=== PATIENT | male | born 1960 | race Caucasian/White ===

== ENCOUNTER → 2019-04-28 | Day surgery (SDC) | payer MEDICARE, OTHER ==
[~2019-04-28] MED LIST: ALLO300T PO; AMLO10TA8 PO; GLIP10TA13 PO; IV RINGERS,LACTATED 1000ML 1,000 ML IV SCH; LIDOCAINE 2% PF 5 ML VIAL. ONE; LISI10TA2 PO; METF500T16 PO; PROPOFOL 40 ML IV ONE; SODIUM PHOSPHATES 19/7GM 133 ML ENEMA. ONE
--- NOTE | 2019-04-28 08:28 | NUR ---
PT HERE IN [facility] FOR COLONOSCOPY. STATED HE ATE SOLID FOODS 04/27/2019 AND DRANK 2 CUPS OF COFFEE WITH SUGAR AM OF PROCEDURE. DR REZA AND ANESTHESIA NOTIFIED. ORDERS FOR ENEMAS X2 AND TO PLACE PATIENT AT END OF THE SCHEDULE DUE TO COFFEE. ENEMAS COMPLETED AND PT NOTED TO BE CLEAR WITH NO SOLIDS IN STOOL. WILL RESUME WITH PROCEDURE BUT POSTPONING TO THE END OF SCHEDULE DUE TO COFFEE
[2019-04-28 10:12] VITALS: BP 119/77
--- NOTE | 2019-04-28 23:34 | CONS ---
DATE OF CONSULTATION: 04/28/2019 REASON FOR CONSULTATION: Colorectal screening. REFERRING PHYSICIAN: Dr. Pierce HISTORY OF PRESENT ILLNESS: A 59-year-old male with past medical history significant for diabetes, hypertension and gout, seen for screening colon exam. Bowel habits are regular without diarrhea or constipation. There has been no melena and/or hematochezia. Family history is unrevealing for colon cancer to his knowledge. Otherwise, no additional complaints. PAST MEDICAL HISTORY: Hypertension, diabetes, gout. ALLERGIES: None. MEDICATIONS: Include allopurinol, amlodipine, glipizide, lisinopril, metformin. SOCIAL HISTORY: Nonsmoker. Social drinker. FAMILY HISTORY: Noncontributory. PAST SURGICAL HISTORY: Noncontributory. REVIEW OF SYSTEMS: Per records. PHYSICAL EXAMINATION: VITAL SIGNS: Temp is 97.5, pulse 78, respiratory rate 20. HEENT: Reveals normocephalic and atraumatic head. Pupils and extraocular muscles are not tested. Sclerae are anicteric. NECK: Supple. LUNGS: Clear. CARDIOVASCULAR: Reveals an S1, S2 without S3, S4 or appreciable murmur. ABDOMEN: Reveals soft abdomen, normal bowel sounds without appreciable hepatosplenomegaly. EXTREMITIES: Reveal no cyanosis, clubbing, edema. IMPRESSION: Colorectal screening is warranted at this time. Risks and benefits of procedure including risk of hemorrhage and perforation have been discussed and the patient is willing to proceed at this time. ZULY REZA MD DR: JUSTIN/tiffany JOB#: [id number] / [id number] juila Pierce Dr.
--- NOTE | 2019-05-01 15:06 | PATHOLOGY ---
[facility] Accession Number: [id number] . 01 Material submitted: . colon - SIGMOID POLYP. Modifiers: sigmoid . 01 Clinical history: . Screening colonoscopy . 02 Diagnosis: Sigmoid colon polypectomy: - Tubular adenoma showing focal high-grade dysplasia. See comment. (JPM:rehabilitation physician; 05/01/2019) MBR/05/01/2019 . 02 Comment: Sections of the sigmoid colon polypectomy reveal a tubular adenoma showing focal high-grade dysplasia. The base of the polyp appears to be lined by colonic mucosa showing coagulation artifact. There is no evidence of invasive carcinoma. (JPM:rehabilitation physician; 05/01/2019) . 02 Electronically signed: . Daron Doan MD, Pathologist NPI- [id number] . 01 Gross description: . Received in formalin labeled "Minro Workman, sigmoid polyp," is a 1.7 x 1.4 x 1.4 cm polypoid piece of shields soft tissue. The margin is inked and the tissue is sectioned perpendicular to the margin and submitted in its entirely in cassette A1 through A3. (TSD; 04/28/2019) TOB/TOB . 02 Pathologist provided ICD-10: D12.5 . 02 CPT . 389472 Specimen Comment: A courtesy copy of this report has been sent to Specimen Comment: [phone], , . Specimen Comment: Report sent to ,DR NEWMAN / DR BILLY Performed at: 01 [facility] [address], [place], [place] [id number] MD Nahum Babb MD Phone: [phone] Performed at: 02 [facility] [address], [place] [id number] MD Daron Doan MD Phone: [phone]
== END ==
LOC: ENDOS 07:54
PROVIDERS: ATTEND Internal Medicine Gastroenterology
DX: Z12.11 Encounter for screening for malignant neoplasm of colon (principal); D12.5 Benign neoplasm of sigmoid colon; I10 Essential (primary) hypertension; E11.9 Type 2 diabetes mellitus without complications; M10.9 Gout, unspecified; Z79.84 Long term (current) use of oral hypoglycemic drugs; Z72.89 Other problems related to lifestyle
CPT/HCPCS: 45385; 82962; 88305; J2001; J2704; 45380